=== PATIENT | female | born 1995 | race Two or more races ===

== ENCOUNTER 2017-11-08 00:40 | Emergency (ER) | payer OTHER ==
[~2017-11-08] VITALS: Ht 167.6 cm; Wt 90.7 kg
[~2017-11-08 00:40] MED LIST: PEPCID40 MG PO
[2017-11-08] MEDS ORDERED: LEVSIN/SL0.125 MG PO (04:30)
[2017-11-08] MEDS ORDERED: KETO10TA2 PO (04:30)
[2017-11-08] MEDS ORDERED: PEPCID20 MG PO (04:30)
== END 2017-11-08 04:59 | disposition home or self-care (01) ==
LOC: ER 00:40
DX: K29.70 Gastritis, unspecified, without bleeding (principal); R10.11 Right upper quadrant pain

== ENCOUNTER 2018-08-08 21:16 | Emergency (ER) | payer OTHER ==
[~2018-08-08] VITALS: Ht 167.6 cm; Wt 98.9 kg
[~2018-08-08 21:16] MED LIST changes: +KETO10TA2 PO; +LEVSIN/SL0.125 MG PO; +PEPCID20 MG PO
== END 2018-08-09 00:45 | disposition left against medical advice (07) ==
LOC: ER 21:16
DX: B34.9 Viral infection, unspecified (principal)

== ENCOUNTER → 2019-06-06 | Emergency (ER) | payer OTHER ==
[~2019-06-06] VITALS: Ht 167.6 cm; Wt 104.3 kg
== END | disposition home or self-care (01) ==
LOC: ER 17:01
DX: L02.411 Cutaneous abscess of right axilla (principal)

== ENCOUNTER 2019-10-25 09:05 | Outpatient (CLI) | payer OTHER | END 2019-10-25 09:11 | disposition home or self-care (01) | LOC: LAB 09:05 | DX: Z00.00 Encounter for general adult medical examination without abnormal findings (principal); E78.49 Other hyperlipidemia; E55.9 Vitamin D deficiency, unspecified; R42 Dizziness and giddiness; Z11.3 Encounter for screening for infections with a predominantly sexual mode of transmission ==

== ENCOUNTER 2019-11-12 09:28 | Outpatient (CLI) | payer OTHER | END 2019-11-12 09:34 | disposition home or self-care (01) | LOC: LAB 09:28 | DX: J11.1 Influenza due to unidentified influenza virus with other respiratory manifestations (principal) ==

== ENCOUNTER → 2019-12-01 16:08 | Outpatient (CLI) | payer OTHER | END | disposition home or self-care (01) | LOC: LAB 16:08 | DX: N92.6 Irregular menstruation, unspecified (principal) ==

== ENCOUNTER → 2020-01-20 | Emergency (ER) | payer OTHER ==
[~2020-01-20] VITALS: Ht 167.6 cm; Wt 104.3 kg
[~2020-01-20] MED LIST changes: +DUI500 PO
== END | disposition home or self-care (01) ==
LOC: ER 05:48
DX: L02.214 Cutaneous abscess of groin (principal)

== ENCOUNTER 2022-04-23 17:03 | Inpatient (IN) | payer OTHER ==
[~2022-04-23] VITALS: Ht 170.2 cm; Wt 98.9 kg
--- NOTE | 2022-04-23 17:49 | NUR ---
PTE SE RECIBE POR DOLOR DE ESTOMAGO PHILIP REFIERE PTE.
--- NOTE | 2022-04-23 18:12 | NUR ---
PACIENTE EVALUADA POR EL QUIEN ORDENA TRATAMIENTO MEDICO.SE ORIENTA PACIENTE SOBRE TRATAMIENTO MEDICO ESTA REFIERE ENTENDER. WALI LIMON REALIZA MUESTRAS Y ADMINISTRA MEDICAMENTOS CATRACHITA ORDEN MEDICA. SE ORIENTA SOBRE CT PEND.
== END 2022-04-26 13:55 | disposition home or self-care (01) | DRG 331 ==
LOC: ER 17:03 → MEDJ 23:14 → SURH 04-24 08:19
PROVIDERS: Surgery; ADMIT Internal Medicine; ATTEND Internal Medicine
PROC: 0DQH4ZZ Repair Cecum, Percutaneous Endoscopic Approach (ICD-10-PCS; 2022-04-24)
PROC: 0DTJ4ZZ Resection of Appendix, Percutaneous Endoscopic Approach (ICD-10-PCS; principal; 2022-04-24 00:15)
DX: K35.33 Acute appendicitis with perforation, localized peritonitis, and gangrene, with abscess (principal); R10.31 Right lower quadrant pain; Z20.822 Contact with and (suspected) exposure to COVID-19

== ENCOUNTER 2024-04-08 15:29 | Emergency (ER) | payer OTHER ==
[~2024-04-08] VITALS: Ht 167.6 cm; Wt 87.5 kg
[2024-04-08] MEDS ORDERED: PRENATABS RX T1 EACH PO (16:04)
[2024-04-08] MEDS ORDERED: FOLIC ACID20 MG PO (16:05)
[2024-04-08 16:35] LABS: HEMOGLOBIN 11.9 g/dL (12.0-15.00); MEAN CELL VOLUME 89.1 fL (80.00-100.00); MEAN CORPUSCULAR HEMOGLOBIN 30.2 pg (27.00-32.0); MEAN CORPUSCULAR HGB CONC 33.9 g/dl (32.0-36.0); PLATELET COUNT 242 K/uL (150-450); RED BLOOD COUNT 3.93 M/uL (4.00-6.00); RED CELL DISTRIBUTION WIDTH 13.5 % (11.5-14.5)
[2024-04-08 17:03] LABS: URINE APPEARANCE Clear; URINE BILIRRUBIN Negative (NEGATIVE); URINE BLOOD Negative; URINE COLOR Yellow; URINE GLUCOSE Negative (NEGATIVE); URINE LEUKOCYTE Negative; URINE NITRATE Negative; URINE PROTEIN Negative (NEGATIVE)
[2024-04-08 17:07] LABS: URINE EPITHELIAL CELLS 31.8 uL (0.0-38.8); URINE RBC 5.9 uL (0.0-20.8); URINE WBC 23.6 uL (0.0-23.2)
== END 2024-04-08 18:26 | disposition home or self-care (01) ==
LOC: ER 15:30
PROVIDERS: General Practice
DX: O20.9 Hemorrhage in early pregnancy, unspecified (principal); Z3A.01 Less than 8 weeks gestation of pregnancy; Z88.8 Allergy status to other drugs, medicaments and biological substances; Z91.040 Latex allergy status; Z91.013 Allergy to seafood

== ENCOUNTER → 2024-05-20 10:14 | Outpatient (CLI) | payer OTHER ==
[~2024-05-20 10:14] MED LIST changes: +FOLIC ACID20 MG PO; +PRENATABS RX T1 EACH PO
== END | disposition home or self-care (01) ==
LOC: PRENATAL 10:14
PROVIDERS: ATTEND Obstetrics & Gynecology Maternal & Fetal Medicine
DX: O36.80X0 Pregnancy with inconclusive fetal viability, not applicable or unspecified (principal); Z36.82 Encounter for antenatal screening for nuchal translucency; Z14.8 Genetic carrier of other disease; O30.90 Multiple gestation, unspecified, unspecified trimester; Z3A.12 12 weeks gestation of pregnancy

== ENCOUNTER 2024-06-17 08:01 | Outpatient (CLI) | payer OTHER | END 2024-06-17 08:02 | disposition home or self-care (01) | LOC: PRENATAL 08:01 | PROVIDERS: ATTEND Obstetrics & Gynecology Maternal & Fetal Medicine | DX: O26.849 Uterine size-date discrepancy, unspecified trimester (principal); O30.90 Multiple gestation, unspecified, unspecified trimester; O44.00 Complete placenta previa NOS or without hemorrhage, unspecified trimester; O60.00 Preterm labor without delivery, unspecified trimester; Z3A.16 16 weeks gestation of pregnancy ==